=== PATIENT | female | born 1960 | race Caucasian/White ===

== ENCOUNTER → 2018-06-25 | Outpatient (CLI) | payer BC ==
[~2018-06-25] MED LIST: CIPR500S2 PO; DIPH25CA57 PO; MIGRAINE MEDICATION; PHEN200T27 PO; VITAMINES; [UNRECOGNIZED DRUG - REMARK]
--- NOTE | 2018-06-25 08:52 | Diagnostic Imaging Report ---
PROCEDURE: CT sinuses without contrast TECHNIQUE: Multiple contiguous axial images were obtained through the sinuses without the use of intravenous contrast. Coronal and sagittal reformations were then performed. Auto Exposure Controls were utilized during the CT exam to meet ALARA standards for radiation dose reduction. INDICATION: Chronic sinusitis with drainage. FINDINGS: There is mild rightward bowing of the nasal septum. Paranasal sinuses are clear apart from minimal mural thickening in the posterior right maxillary antrum. Both ostiomeatal complexes are patent. Globes are intact. There is very mild atherosclerotic disease seen within distal internal carotid arteries. IMPRESSION: No acute sinus disease detected. There is minimal mural thickening in the right maxillary sinus. Dictated by: Dictated on workstation # [id number]
== END ==
LOC: RAD 08:16
PROVIDERS: ATTEND Otolaryngology Otolaryngology/Facial Plastic Surgery
DX: J32.9 Chronic sinusitis, unspecified (principal)
CPT/HCPCS: 70486

== ENCOUNTER → 2020-03-09 | Outpatient (CLI) | payer BC | LOC: MERGE 15:31 → CARD 15:31 | PROVIDERS: ATTEND Obstetrics & Gynecology | DX: R00.2 Palpitations (principal) | CPT/HCPCS: 93005 ==

== ENCOUNTER → 2020-07-12 | Outpatient (CLI) | payer BC ==
--- NOTE | 2020-07-12 14:27 | Diagnostic Imaging Report ---
PROCEDURE: MR imaging cervical spine without contrast. TECHNIQUE: Multiplanar, multisequence MR imaging of the cervical spine was performed without contrast. INDICATION: Neck pain and radiculopathy. No prior MRI studies are available for comparison. Curvature and alignment of the cervical spine is normal. Vertebral marrow signal is unremarkable. There are some Modic changes C3-C4 endplates. There is multilevel degenerative disc disease with variable disc space narrowing with disc desiccation and marginal spurring. The cervical cord does show normal homogeneous signal intensity and normal morphology. Craniocervical junction is unremarkable. C2-C3: No central canal or neural foraminal stenosis is identified. C3-C4: No central canal or neural foraminal stenosis is identified. Endplate osteophytes do produce slight indentation upon the ventral thecal sac. C4-C5: No central canal or neural foraminal stenosis is identified. C5-C6: Endplate osteophytes and uncovertebral joint degenerative change result in moderate bilateral neural foraminal stenosis. No central canal stenosis is identified. C6-C7: Uncovertebral joint degenerative changes result in mild neural foraminal narrowing. Central canal is patent. C7-T1: No central canal or neural foraminal stenosis is identified. Paraspinous tissues are unremarkable. IMPRESSION: Cervical spondylosis with neural foraminal narrowing as described level by level above. No central canal stenosis is identified. Dictated by: Dictated on workstation # [id number]
== END ==
LOC: RAD 13:15
PROVIDERS: ATTEND Nurse Practitioner Family
DX: M48.02 Spinal stenosis, cervical region (principal); M50.13 Cervical disc disorder with radiculopathy, cervicothoracic region; M47.22 Other spondylosis with radiculopathy, cervical region; K22.4 Dyskinesia of esophagus; K44.9 Diaphragmatic hernia without obstruction or gangrene
CPT/HCPCS: 72141

== ENCOUNTER 2020-10-26 09:34 | Outpatient (CLI) | payer BC ==
[~2020-10-26] VITALS: Ht 162.6 cm; Wt 56.8 kg
[2020-10-26 09:38] VITALS: BP 91/54
[2020-10-26] MEDS ORDERED: CASIRIVIMAB/IMDEVIMAB 1,200 MG in NS (IVPB) 250 ML IV ONE (10:00)
[2020-10-26] MEDS ORDERED: diphenhydrAMINE 50 MG/ML INJ (BENADRYL) IV PRN (10:00)
[2020-10-26] MEDS ORDERED: EPINEPHrine INJECTION 1 MG/ML AMP IM PRN (10:00)
[2020-10-26 11:13] VITALS: BP 89/57
== END 2020-10-26 12:04 | disposition home or self-care (01) ==
LOC: INFUSION 09:34
PROVIDERS: ATTEND Nurse Practitioner Family
DX: Z23 Encounter for immunization (principal); U07.1 COVID-19

== ENCOUNTER → 2021-02-28 | Outpatient (CLI) | payer BC ==
--- NOTE | 2021-02-28 09:27 | Diagnostic Imaging Report ---
INDICATION: Palpable aorta. PROCEDURE: Ultrasound abdomen complete. TECHNIQUE: Multiple Real-time grayscale images were obtained of the abdomen in various projections. FINDINGS: The liver and bile ducts are normal. The gallbladder is absent. The pancreas, spleen, and kidneys are normal. The maximal diameter of the aorta is 1.9 cm. No aneurysm, dissection, or stenosis is seen. There is no retroperitoneal or mesenteric mass demonstrated. The IVC is normal. There is no ascites. IMPRESSION: No acute abnormality is seen. No aneurysm is seen. Dictated by: Dictated on workstation # [id number]
== END ==
LOC: RAD 08:30
PROVIDERS: ATTEND Nurse Practitioner Family
DX: R09.89 Other specified symptoms and signs involving the circulatory and respiratory systems (principal)
CPT/HCPCS: 76700

== ENCOUNTER → 2022-03-06 | Outpatient (CLI) | payer BC ==
--- NOTE | 2022-03-06 17:07 | Diagnostic Imaging Report ---
INDICATION: Postmenopausal female. COMPARISON: None. FINDINGS: AP Spine L2-L4: [BMD (g/cm2): 1.109] [T-Score: -0.8] [Z-Score: 0.6] [BMD Previous: NA] [BMD % Change: NA] LT Hip Neck: [BMD (g/cm2): 0.838] [T-Score: -1.4] [Z-Score: -0.1] LT Hip Total: [BMD (g/cm2):0.884] [T-Score:-1.0] [Z-Score: 0.1] [BMD Previous: NA] [BMD % Change: NA] RT Hip Neck: [BMD (g/cm2):0.875] [T-Score:-1.2] [Z-Score:0.2] RT Hip Total: [BMD (g/cm2):0.930] [T-score:-0.6] [Z-Score:0.4] [BMD Previous:NA] [BMD % Change:NA] *Indicates significant change from prior examination based on 95% confidence level. World Health Organization criteria for BMD interpretation classify patients as Normal (T-score at or above -1.0), Osteopenic (T-score between -1.0 and -2.5) or Osteoporotic (T-score at or below -2.5). LIMITATIONS AND MODIFICATION: None. FRACTURE RISK (FRAX SCORE): The ten year probability of (%): Major Osteoporotic Fracture: [7.8] Hip Fracture: [0.7] IMPRESSION: 1. Osteopenia (Low bone mass). 2. Baseline examination. 3. See below National Osteoporosis Foundation guidelines on when to potentially initiate pharmacologic therapy. Based on the National Osteoporosis Foundation Guidelines, pharmacologic treatment should be initiated in any of the following, unless clinical conditions suggest otherwise: * Any patient with prior fragility fracture of the hip or vertebrae. A spine fracture indicates 5X risk for subsequent spine fracture and 2X risk for subsequent hip fracture. * Osteoporosis (T-score <-2.5). * Postmenopausal women and men age 50 and older with low bone mass/osteopenia (T-score between -1.0 and -2.5) by DXA and 10-year major osteoporotic fracture greater than 20% or a 10-year probability of hip fracture greater than 3%. These fracture risks are supplied above in the FRAX score, if applicable. * Clinician judgement and/or patient preferences may indicate treatment for people with 10-year fracture probabilities above or below these levels. Dictated by: Dictated on workstation # [id number]
== END ==
LOC: RAD 13:30
PROVIDERS: ATTEND Obstetrics & Gynecology
DX: Z13.820 Encounter for screening for osteoporosis (principal); M85.80 Other specified disorders of bone density and structure, unspecified site; Z78.0 Asymptomatic menopausal state
CPT/HCPCS: 77080